=== PATIENT | male | born 1950 | race Two or more races ===

== ENCOUNTER 2017-11-25 10:33 | Emergency (ER) | payer OTHER ==
[~2017-11-25] VITALS: Ht 167.6 cm; Wt 74.4 kg
[2017-11-25 10:58] VITALS: BP 135/79
[2017-11-25] MEDS ORDERED: KETOROLAC TROMETH 60MG/2ML VIAL IM ONE (12:00)
== END 2017-11-25 12:37 | disposition home or self-care (01) ==
LOC: ER 10:33
DX: M47.892 Other spondylosis, cervical region (principal); M54.12 Radiculopathy, cervical region; E11.9 Type 2 diabetes mellitus without complications; I10 Essential (primary) hypertension; M54.5 Low back pain; G89.29 Other chronic pain
CPT/HCPCS: 72040; 93005; 96372; 99284; J1885